=== PATIENT | male | born 1970 | race Caucasian/White ===

== ENCOUNTER 2023-07-13 08:08 | Emergency (ER) | payer OTHER, SELFPAY ==
[2023-07-13 08:19] VITALS: BP 133/78
[2023-07-13 08:41] VITALS: BMI 29.0
[2023-07-13 08:51] LABS: Urine Albumin 1+ (Neg - Trace); Urine Bilirubin 1+ (Negative); Urine Character Very Cloudy (Clear); Urine Color Brown; Urine Glucose Negative (Negative); Urine Ketone Negative (Negative); Urine Leukocyte Trace (Negative); Urine Nitrite Positive (Negative); Urine Occult Blood 4+ (Negative); Urine Specific Gravity 1.025 (<1.030); Urine Urobilinogen 1+ (Neg - 1+)
[2023-07-13 08:56] LABS: % Basophils 0.6 % (0-2); % Eosinophils 1.4 % (0-6); % Immature Granulocytes 0.4 % (0-0.5); % Lymphocytes 28.5 % (20.5-51.1); % Monocytes 6.7 % (1.7-9.3); % Neutrophils 62.4 % (42.2-75.2); Absolute Eosinophils 0.1 10^3/uL (0-0.7); Absolute Lymphocytes 2.1 10^3/uL (1.2-3.4); Absolute Monocytes 0.5 10^3/uL (0.1-0.6); Absolute Neutrophils 4.5 10^3/uL (1.4-6.5); Hemoglobin 14.8 g/dL (13.0-18.0); Mean Corp Hgb Conc. 35.2 g/dL (33.0-37.0); Mean Corpuscular Hgb 30.6 pg (27.0-31.0); Nucleated Red Blood Cells % 0 % (-); Platelet Count 183 10^3/uL (130-400); Red Blood Cell Count 4.83 10^6/uL (4.70-6.10); Red Cell Dist. Width 12.1 % (11.5-14.5); White Blood Cell Count 7.3 10^3/uL (4.8-10.8)
--- NOTE | 2023-07-13 09:01 | ED.GENMED ---
History of Present Illness
General
Chief Complaint: Urinary Symptoms
Source: patient and spouse
Exam Limitations: none
Time Seen by Provider: 07/13/23 08:25
Nursing documentation reviewed up to this point in time: agreed with
Travel History
Have you had any contact with someone who has COVID-19?: No
Do you have any symptoms of coronavirus? Fever > 100 degrees, chills, cough, shortness of breath, sore throat, loss of taste or smell, muscle aches, or headache?: No
History of Present Illness
History of Present Illness:
53-year-old male with past medical history of CAD status post stent, hyperlipidemia, ex-smoker who presents to the emergency department for evaluation of hematuria and flank/groin pain. Patient reports that for the past 2 weeks or so he has had
some pain in the left groin and left low back/flank. He says that he goes to the gym regularly and his pain seems to be worse with movement or prolonged standing and so he initially attributed to a muscular pain. He says that he took a rest from
the gym but noticed that this pain was not necessarily improving. He does state that he will occasionally get pain even when he is sitting resting. Today when he woke up in the morning and noticed that in addition to the pain he was having some
dark blood-tinged urine which is a new issue. Decided to come to the emergency room for assessment. He denies any fevers or chills. He denies any dysuria or change in frequency. He denies any testicular pain or swelling. He denies any abdominal
pain. No nausea or vomiting. No change in his bowel movements. He denies similar symptoms in the past.
Past History
Past History
ED Past Medical History: CAD and Other (Pancreatitis, migraines )
ED Past Surgical History: Cardiac (Stent of the LAD) and Cholecystectomy
Social History
Tobacco: Smoker
Alcohol: None
Family History
Family History: Other (His mother had a cholecystectomy )
Review of Systems
Review of Systems
All Other Systems: ROS reviewed and negative except as documented in HPI and ROS
Constitutional: Denies fever or chills
EENT: Denies sore throat or runny nose
Respiratory: Denies cough or trouble breathing
Cardiac: Denies chest pain or palpitations
ABD/GI: Denies abdominal pain, nausea or vomiting
: Reports flank pain, bleeding and dark urine; Denies dysuria or frequency
Musculoskeletal: Reports muscle pain (Left groin pain) and back pain; Denies neck pain
Neurological: Denies headache, weakness or numbness
Phy Exam
Physical Exam
Physical Exam:
General: Awake, alert, oriented x3; no acute distress
Head: Normocephalic, atraumatic
Eyes: Conjunctiva normal, sclera anicteric
Throat: Airway intact, handling secretions
Neck: Trachea midline, supple without meningismus
Lungs: Clear to auscultation bilaterally, no wheezing, rales, rhonchi
Heart: Regular rate and rhythm, no murmurs, gallops, or rubs
Abd: Soft, non distended, nontender to deep palpation
: No scrotal swelling, normal testicular lie; some mild tenderness in the inguinal crease but no mass or swelling or signs of hernia, normal left femoral pulse
Back: No CVA tenderness and no reproducible tenderness in the thoracic or lumbar spine or in the paraspinal muscles of the lumbar region
Neuro: Cranial nerves grossly intact, speech fluid
Skin: no rash
Extremities: Warm and well-perfused
Scores
Heart Failure Risk
Heart Failure Risk Score: Not Applicable
Heart Score for Chest Pain Patients
STEMI patient?: Not applicable
Withdrawal Assessment of Alcohol
Withdrawal Assessment Completed?: Not applicable
Course
Orders/Labs/Results
Orders:
Orders
07/13/23 08:27
CT Abd/pel Without Iv Or Oral Urgent
Comment:
Reason For Exam: left flank pain, hematuria
07/13/23 08:44
Complete Blood Count/With Diff Urgent
Comprehensive Metabolic Panel Urgent
Creatine Phosphokinase Urgent
Comment: ADD ON
Urinalysis Reflex To Culture Urgent
Date Specimen was Collected: 07/13/23
Time Specimen was Collected: :
Urine Microscopic Reflex Cult Urgent
Urine Culture Urgent
PRAKASH Source: U
Specimen Description:
Date Specimen was Collected: 07/13/23
Time Specimen was Collected: :
07/13/23 09:01
Add On- LAB Urgent
Tests Added?: CPK
Abnormal Lab Results
07/13/23
08:44
Glucose 113 H mg/dl
(70-99)
Ur Occult Blood Reflex 4+ A
(Negative)
Urine Nitrite (Reflex) Positive A
(Negative)
Urine Bilirubin 1+ A
(Negative)
Leukocyte Esterase Rfl Trace A
(Negative)
Urine RBC >100 A /HPF
(0-2)
Urine Bacteria (Reflex) Many A
(Negative)
Urine Albumin (Reflex) 1+ A
(Neg - Trace)
07/13/23 08:44
07/13/23 08:44
Vital Signs
Initial and Last Documented VS:
Initial Vital Signs
Temp Pulse Resp BP Pulse Ox
36.7 C 67 16 133/78 100
07/13/23 08:19 07/13/23 08:19 07/13/23 08:19 07/13/23 08:19 07/13/23 08:19
Last Documented Vital Signs
Temp Pulse Resp BP Pulse Ox
36.7 C 78 16 127/85 100
07/13/23 08:19 07/13/23 10:00 07/13/23 10:00 07/13/23 10:00 07/13/23 08:19
MDM/Problems Addressed
Differential Diagnosis Includes:
Muscle strain/rhabdomyolysis, nephrolithiasis, pyelonephritis, renal mass
MDM/Problems Addressed:
53-year-old male presents for evaluation of left flank/groin pain for the past 2 weeks now with some dark hematuria. Vital signs all within normal limits. Physical exam as above. Plan to place an IV check labs including CBC and CMP, CPK. Will
check urinalysis. Will send for CT of the abdomen pelvis. Monitor closely reassess after the above.
Labs reviewed: CBC unremarkable, CMP shows no clinically significant abnormalities. Urinalysis positive for nitrites with significant blood, many bacteria but no pyuria. Will plan to treat with antibiotics with concern for possible UTI. CT of the
abdomen pelvis shows no nephrolithiasis, no other acute pathology although he does have a finding concerning for possible small bladder neoplasm. Fortunately his urine here is dark but no significant clots and he is voiding without any postvoid
residual. Discussed with urology who indicated that they can see patient in the office next week. Recommend increasing fluid intake. Do not suspect that his groin/back pain is necessarily related to hematuria at this point�it is rather clearly
worse with movement and he does admit that it feels like a muscular pain suspect that that is more likely musculoskeletal pain and unrelated to hematuria but will cover with antibiotics for possible infection as above. I had a long discussion with
the patient to go over results and plan as above he feels comfortable with this. Spoke about return precautions and all questions were answered.
*Radiology
Radiology exam reviewed: radiology read reviewed
*Pulse Oximetry
Patient hypoxic: no
*Critical Care Note
Total Time (30-74mins, 75-104mins- exclusive of procedures): Not Applicable
Data Reviewed
Source: patient and spouse
Patient Management
Discussion with other providers: Tennis Ball Cover Cementer (Discussed with urology) and Radiologist (Discussed with radiologist)
ED Attending Note
-
Portions of this chart may have been created with voice recognition software.� Occasional wrong word or��sound alike� substitutions may have occurred due to the inherent limitations of voice recognition software.
Discharge Plan
Departure
Patient Disposition: Home (Routine Discharge)
Date of Disposition: 07/13/23
Time of Disposition: 10:41
Patient with high blood pressure during this ER visit?: No
Discharge Problem:
Acute UTI, Hematuria, Bladder mass, Groin strain
Instructions: Urinary Tract Infection, Adult (DC), Blood in the Urine (Hematuria), Adult (DC), Groin Strain ED
Prescriptions:
New
sulfamethoxazole-trimethoprim [Bactrim DS] 800-160 mg tablet
1 tab PO BID Qty: 14 0RF
No Action
mbtupbpema-jynkleimrasfd-szdv 1 TAB tablet
1 tab PO Q6HPRN PRN (Reason: migraines)
Patient Comments:
not to exceed 6 tablets in 24hours
aspirin 81 MG tablet,chewable
81 mg PO DAILY 0RF
nitroglycerin 0.4 MG tablet, sublingual
0.4 mg sublingual [id number] PRN (Reason: chest pain) Qty: 25 2RF
rosuvastatin 40 mg Tablet
40 mg PO QPM
acetaminophen [acetaminophen] 325 mg tablet
650 mg PO Q4HPRN PRN (Reason: mild pain) Qty: 1 0RF
ibuprofen 200 mg tablet
400 - 600 mg PO Q6HPRN PRN (Reason: moderate pain) Qty: 1 0RF
Vitamin D3
1 tab PO DAILY
Referrals:
Jd Gill MD [Active] - Call in 1-3 days for appt (Urology--call today to schedule the first available appointment)
Zoe Fowler MD [Family Provider] - Call in 1-3 days for appt
Activity Restrictions/Additional Instructions:
Thank you for visiting the Emergency Department at [facility].
1. Please schedule a follow up appointment as directed. Call first thing tomorrow morning to make an appointment.
2. If indicated, please take your medications as instructed and indicated on discharge paperwork.
3. If any of your symptoms do not improve, or persist, or become more severe within 6-12 hours, please return to the emergency department for further care.
4. Please return to the emergency department if you develop a headache, neck pain/stiffness, fever greater than 100.4F, chest pain, shortness of breath, persistent nausea, vomiting, slurred speech, difficulty walking, numbness/tingling, weakness,
signs of infection or any other symptoms that are worrisome to you.
Please call [phone] if you have any questions.
Interventions
Interventions:
*Risk Screen - Suicide Last Done: 07/13/23 08:29
*General Assessment Last Done: 07/13/23 08:48
*Neglect/Abuse Screening Last Done: 07/13/23 08:29
ED- Fall Risk Assessment Last Done: 07/13/23 08:42
*ED COVID-19 Vaccine History Last Done: 07/13/23 08:19
ED-Male Genitourinary Assessment Last Done: 07/13/23 08:46
[2023-07-13 09:16] LABS: Urine Red Blood Cell >100 /HPF (0-2)
[2023-07-13 09:17] LABS: Urine Bacteria Many (Negative); Urine White Cell 0-2 /HPF (0-5)
[2023-07-13 09:25] LABS: ALT (SGPT) 20 U/L (0-50); AST (SGOT) 26 U/L (17-59); Albumin 4.5 g/dl (3.5-5.0); Alkaline Phosphatase 59 U/L (38-126); Blood Urea Nitrogen 11 mg/dl (9-20); Calcium 9.3 mg/dl (8.4-10.2); Carbon Dioxide 26 mmol/L (22-30); Estimated Creatinine Clearance 90 ml/min; Glucose 113 mg/dl (70-99); Potassium 3.9 mmol/L (3.5-5.1); Sodium 138 mmol/L (135-145); Total Bilirubin 0.9 mg/dl (0.2-1.3); eGFR > 60.00
[2023-07-13 09:32] LABS: Chloride 104 mmol/L (98-107)
[2023-07-13 10:00] VITALS: BP 127/85
[2023-07-13 10:50] LABS: Creatine Phosphokinase 95 U/L (55-170)
[2023-07-13] MEDS: BACTRIM DS 800 MG/160 MG 1 TABLET PO (11:08)
[2023-07-13 11:16] VITALS: BP 120/87
== END 2023-07-13 11:17 | disposition home or self-care (01) ==
LOC: EMR 08:08
PROVIDERS: EMERGENCY PHYSICIAN Emergency Medicine; FAMILY PHYSICIAN Internal Medicine
DX: N39.0 Urinary tract infection, site not specified (principal); N32.9 Bladder disorder, unspecified; S39.011A Strain of muscle, fascia and tendon of abdomen, initial encounter; X58.XXXA Exposure to other specified factors, initial encounter; R31.9 Hematuria, unspecified; I25.10 Atherosclerotic heart disease of native coronary artery without angina pectoris; E78.5 Hyperlipidemia, unspecified; F17.200 Nicotine dependence, unspecified, uncomplicated
CPT/HCPCS: 99284; 74176; 80053; 81003; 81015; 82550; 85025; 87086

== ENCOUNTER 2025-04-08 07:57 | Emergency (ER) | payer OTHER, SELFPAY ==
[2025-04-08] VITALS (8 sets, daily range): BP systolic 123–153; BP diastolic 72–86; BMI 27.6
--- NOTE | 2025-04-08 08:20 | EDRN ---
Tia Conner PA in room w/pt.
--- NOTE | 2025-04-08 08:27 | ED.GENMED ---
History of Present Illness
<Jacky Conner PA-C - Last Filed: 04/08/25 16:46>
General
Chief Complaint: Chest Pain
Source: patient
Time Seen by Provider: 04/08/25 08:15
History of Present Illness
History of Present Illness:
55-year-old male with past medical history of CAD status post previous GA with LAD stent in 2016, hyperlipidemia, previous pancreatitis, GERD presenting to the ER for evaluation after he started noticing a waxing and waning discomfort around the
left anterior chest described to be a burning sensation with intermittent crampiness that lasts approximately 10 seconds and then resolves spontaneously occurring multiple times throughout the day but without any exacerbating or alleviating factors
noting that the pain is so fleeting he did not take anything for the symptoms. Patient notes no other associated symptoms. He denies any fevers or recent illnesses. Denies any recent travel or known sick contacts. Also denies any cough,
shortness of breath, diaphoresis, exertional dyspnea, orthopnea, lower extremity edema, abdominal pain, nausea or vomiting. Social history was noted for vaping and occasional alcohol use but nothing out of the ordinary over the last few days. He
reports good compliance with his aspirin regimen. He notes that he works out 3 to 4 days/week and has not had any symptoms while exercising. He follows with senior principal process engineer, Dr. Torres, and had seen him on an outpatient basis for an annual visit
not too long ago and reports 'everything was okay'.
Past History
<Jacky Conner PA-C - Last Filed: 04/08/25 16:46>
Past History
ED Past Medical History: CAD, HTN, Hypercholesterolemia, GA and Other (Pancreatitis, migraines )
ED Past Surgical History: Cardiac (Stent of the LAD) and Cholecystectomy
Social History
Tobacco: Vaping
Alcohol: Occasional
Drug: None
Personal:
Living: with family
Family History
Family History: Other (His mother had a cholecystectomy )
Review of Systems
<Jacky Conner PA-C - Last Filed: 04/08/25 16:46>
Review of Systems
All Other Systems: ROS reviewed and negative except as documented in HPI and ROS
Phy Exam
<Jacky Conner PA-C - Last Filed: 04/08/25 16:46>
Physical Exam
Physical Exam:
GENERAL: Alert , in no apparent distress
EYE: clear conjunctiva b/l
HEAD: NCAT
ENT: o/p clr, mmm.
CARDIAC: Regular rate and rhythm .
LUNGS: Clear breath sounds bilaterally, no acute respiratory distress, no wheezes/rales/rhonchi
ABDOMEN: Soft, without focal tenderness, no r/g, no cvat
NEUROLOGICAL: Alert and oriented
SKIN: Warm and dry, skin intact.
MUSCULOSKELETAL: No edema, well perfused.
PSYCH: Normal and appropriate interaction.
Scores
<Jacky Conner PA-C - Last Filed: 04/08/25 16:46>
Heart Failure Risk
Heart Failure Risk Score: Not Applicable
Heart Score for Chest Pain Patients
STEMI patient?: No
History: Slightly or Non-Suspicious
ECG: Normal
Age: >45 - <65 years
Risk Factors: >/= 3 Risk Factors or History of CAD
Troponin: </= Normal Limit
Heart Score for Chest Pain Patients: 3
Heart Score Risk: 2.5% MACE over next 6 weeks
Withdrawal Assessment of Alcohol
Withdrawal Assessment Completed?: Not applicable
<Nikita Lemos MD - Last Filed: 04/08/25 10:21>
Heart Score for Chest Pain Patients
Heart Score for Chest Pain Patients: 3
Heart Score Risk: 2.5% MACE over next 6 weeks
Course
<Jacky Conner PA-C - Last Filed: 04/08/25 16:46>
Orders/Labs/Results
Orders:
Orders
04/08/25 Breakfast
NPO
Allow oral meds: Yes
Allow clear liquids: No
NPO with Ice Chips: No
04/08/25 07:59
EKG [Electrocardiogram (*1)] Urgent
Reason for Study: Chest Pain
04/08/25 08:00
EKG- Treatment ONCE
04/08/25 08:16
Cardiac Monitoring- Treatment ONCE
IV Insert/Care/Rem.- Treatment PRN
04/08/25 08:27
CR Chest - 2 Views Urgent
Comment:
Reason For Exam: chest pain
04/08/25 08:29
Complete Blood Count/With Diff Urgent
Comprehensive Metabolic Panel Urgent
Troponin I Urgent
04/08/25 11:28
Troponin I Routine
04/08/25 11:30
EKG [Electrocardiogram (*1)] Routine
Reason for Study: Chest Pain
Comment: To be done with troponin
04/08/25 12:42
Stress Echo Cardiography (*10) Routine
Reason for Study: Chest pain
Abnormal Lab Results
04/08/25
08:29
RBC 4.56 L 10^6/uL
(4.70-6.10)
Glucose 131 H mg/dl
(70-99)
04/08/25 08:29
04/08/25 08:29
Vital Signs
Initial and Last Documented VS:
Initial Vital Signs
Temp Pulse Resp BP Pulse Ox
98.2 F 61 16 153/86 98
04/08/25 08:00 04/08/25 08:00 04/08/25 08:00 04/08/25 08:00 04/08/25 08:00
Last Documented Vital Signs
Temp Pulse Resp BP Pulse Ox
98.2 F 57 17 125/76 98
04/08/25 08:00 04/08/25 15:00 04/08/25 16:41 04/08/25 16:41 04/08/25 15:00
<Nikita Lemos MD - Last Filed: 04/08/25 10:21>
Orders/Labs/Results
Orders:
Orders
04/08/25 Breakfast
NPO
Allow oral meds: Yes
Allow clear liquids: No
NPO with Ice Chips: No
04/08/25 07:59
EKG [Electrocardiogram (*1)] Urgent
Reason for Study: Chest Pain
04/08/25 08:00
EKG- Treatment ONCE
04/08/25 08:16
Cardiac Monitoring- Treatment ONCE
IV Insert/Care/Rem.- Treatment PRN
04/08/25 08:27
CR Chest - 2 Views Urgent
Comment:
Reason For Exam: chest pain
04/08/25 08:29
Complete Blood Count/With Diff Urgent
Comprehensive Metabolic Panel Urgent
Troponin I Urgent
04/08/25 11:28
Troponin I Routine
04/08/25 11:30
EKG [Electrocardiogram (*1)] Routine
Reason for Study: Chest Pain
Comment: To be done with troponin
04/08/25 12:42
Stress Echo Cardiography (*10) Routine
Reason for Study: Chest pain
Abnormal Lab Results
04/08/25
08:29
RBC 4.56 L 10^6/uL
(4.70-6.10)
Glucose 131 H mg/dl
(70-99)
04/08/25 08:29
04/08/25 08:29
Vital Signs
Initial and Last Documented VS:
Initial Vital Signs
Temp Pulse Resp BP Pulse Ox
98.2 F 61 16 153/86 98
04/08/25 08:00 04/08/25 08:00 04/08/25 08:00 04/08/25 08:00 04/08/25 08:00
Last Documented Vital Signs
Temp Pulse Resp BP Pulse Ox
98.2 F 57 17 125/76 98
04/08/25 08:00 04/08/25 15:00 04/08/25 16:41 04/08/25 16:41 04/08/25 15:00
<Jacky Conner PA-C - Last Filed: 04/08/25 16:46>
MDM/Problems Addressed
Differential Diagnosis Includes:
ACS
Arrhythmia
Valvular disease
PE
Pericarditis/Myocarditis
Dissection
GERD/Gastritis
PUD
Muscular etiology
MDM/Problems Addressed:
55-year-old male presents to the ER for waxing and waning chest discomfort lasting approximately 10 seconds and then resolving spontaneously, asymptomatic at time of my exam. EKG done in triage shows a sinus bradycardia without any ischemic changes
or ectopy. Patient overall well-appearing. He does have known CAD with status post LAD stent. He does report working out multiple times per week and never symptomatic during exercise. Overall my suspicion for ACS is quite low but given cardiac
history will perform 3-hour troponin. Will keep on conveyor monitor. Disposition pending
Chronic conditions affecting care: CAD
<Jacky Conner PA-C - Last Filed: 04/08/25 16:46>
*Radiology
Radiology exam reviewed: preliminary read by ED provider (normal CXR)
*Pulse Oximetry
SaO2: 98
Oxygen Mode of Delivery: Room air
Patient hypoxic: no
*EKG
Heart Rate: 58
Rate: bradycardiac
Rhythm: sinus
Latty: normal axis
Ischemia: no ischemia
*Roping Machine Tender Interpretation
Heart Rate: 67
Rhythm: sinus
*Critical Care Note
Total Time (30-74mins, 75-104mins- exclusive of procedures): Not Applicable
<Jacky Conner PA-C - Last Filed: 04/08/25 16:46>
Patient Management
Discussion with other providers: Scientific Glass Blower
Escalation/DeEscalation of care consider admission/obs:
Patient's repeat troponin negative. Given his cardiac history we did discuss the case with on-call senior principal process engineer, Dr. Farrell, who came to the emergency department to evaluate the patient with plans to perform stress echo today at 3:15PM, as long
as this is unremarkable patient can be safely dispositioned home, if abnormal we will discuss with cardiology about further testing/treatment planning.
Patient patient had stress echo done with the following results
SUMMARY
1. Normal Stress Echocardiogram with normal hemodynamic response to excercise.
2. Good exercise capacity for age.
3. Overall low risk stress test.
4. Compared to the prior on 04/20/2016, the findings are similar.
Per cardiology patient will be safely discharged home. Patient advised on return precautions but otherwise stable for discharge.
ED Attending Note
<Jacky Conner PA-C - Last Filed: 04/08/25 16:46>
-
Portions of this chart may have been created with voice recognition software.� Occasional wrong word or��sound alike� substitutions may have occurred due to the inherent limitations of voice recognition software.
<Nikita Lemos MD - Last Filed: 04/08/25 10:21>
ED Attending Note
Patient seen and examined by attending physician: Yes
ED Attending Note:
Patient with history of CAD, status post 1 cardiac stent placement in 2016, presents to ED secondary to intermittent chest pain since yesterday afternoon. Chest pain described as crampy, burning, nonradiating, without any alleviating or
exacerbating symptoms. Chest pain has lasted seconds to minutes, with spontaneously solution. Denies recent illness. Denies recent trauma. No recent change in medications or diet. Denies back pain. Denies leg pain or swelling. No recent
travel or surgery. Patient states that his chest pain is different from what he experienced in 2016. However, since 2016, patient has not experienced any chest pain until yesterday. In addition, patient reports seeing his primary senior principal process engineer,
Dr. Torres, 2 weeks ago for routine visit.
Physical Exam
General: no apparent distress, not acutely ill. afebrile
Head: nc/at. eomi
Neck: supple. no meningeal signs.
Heart: s1/s2 regular rate and rhythm, no murmur
Lungs: no acute respiratory distress. clear bilaterally
Abdomen: normal bowel sounds. not tender.
Neuro: alert and oriented x 3. no focal neurological deficits
Skin: no rash
Psychiatric: well kept. interactive and cooperative
Extremities: no edema. no calf tenderness.
Patient with an unremarkable workup in ED, including EKG and troponin. However, patient is still experiencing intermittent chest pain during evaluation ED. Cardiac catheterization report from 2016 reviewed, significant for 1 cardiac stent
placement along with multiple vessels with minimal to moderate disease. In light of ongoing symptoms, with new chest pain, will consult cardiology for an evaluation in ED.
Discharge Plan
Departure
Patient Disposition: Home (Routine Discharge)
Date of Disposition: 04/08/25
Time of Disposition: 16:39
Patient with high blood pressure during this ER visit?: Yes
Discharge Problem:
Chest pain
Instructions: Chest pain (DC)
Prescriptions:
No Action
rosuvastatin 40 mg Tablet
40 mg PO QPM
acetaminophen [acetaminophen] 325 mg tablet
650 mg PO Q4HPRN PRN (Reason: mild pain) Qty: 1 0RF
cholecalciferol (vitamin D3) [Vitamin D3] 25 mcg (1,000 unit) Tablet
25 mcg PO DAILY
famotidine [Pepcid] 20 mg Tablet
20 mg PO DAILYPRN PRN (Reason: gerd)
lsjbkypfvv-btzthwipcsbtc-hfya [Fioricet] 50-300-40 mg Capsule
1 cap PO Q6HPRN PRN (Reason: headaches)
aspirin 81 MG tablet,chewable
81 mg PO DAILY
Referrals:
Zoe Fowler MD [Family Provider, Internal Medicine]
Interventions
Interventions:
*Risk Screen - Suicide Last Done: 04/08/25 08:00
*General Assessment Last Done: 04/08/25 08:18
*Neglect/Abuse Screening Last Done: 04/08/25 08:00
*ED- Fall Risk Assessment Last Done: 04/08/25 08:18
*ED COVID-19 Vaccine History Last Done: 04/08/25 08:18
*ED Influenza Vaccine History Last Done: 04/08/25 08:18
*Nursing Disposition Last Done: 04/08/25 16:45
ED- Cardiac Assessment Last Done: 04/08/25 08:34
Discharge Date and Time
Print Language: ICELANDIC
[2025-04-08 08:42] LABS: Hematocrit 40.4 % (39.0-52.0); Hemoglobin 13.7 g/dL (13.0-18.0); Mean Corp Hgb Conc. 33.9 g/dL (33.0-37.0); Mean Corpuscular Volume 88.6 fL (80.0-94.0); Nucleated Red Blood Cells % 0 % (-); Platelet Count 158 10^3/uL (130-400); Red Cell Dist. Width 12.6 % (11.5-14.5)
[2025-04-08 08:56] LABS: ALT (SGPT) 19 U/L (0-50); AST (SGOT) 21 U/L (17-59); Albumin 4.3 g/dl (3.5-5.0); Alkaline Phosphatase 52 U/L (38-126); Blood Urea Nitrogen 13 mg/dl (9-20); Calcium 9.1 mg/dl (8.4-10.2); Carbon Dioxide 29 mmol/L (22-30); Chloride 106 mmol/L (98-107); Estimated Creatinine Clearance 88 ml/min; Glucose 131 mg/dl (70-99); Potassium 4.1 mmol/L (3.5-5.1); Sodium 140 mmol/L (135-145); Total Protein 6.6 g/dl (6.3-8.2); eGFR > 60.00
[2025-04-08 09:07] LABS: Troponin I < 0.012 ng/ml
--- NOTE | 2025-04-08 09:35 | EDRN ---
Tia Conner PA in to speak w/ pt.
--- NOTE | 2025-04-08 11:30 | CON.CAR ---
Addendum entered and electronically signed by Keily Farrell MD 04/08/25 15:23:
I saw and evaluated the patient, and I provided the substantive portion of the medical decision making.
I reviewed and agree with the note by Darcy MAKI and it accurately reflects our care.
I personally performed the medical decision making of the this encounter and my assessment and plan is below:
55-year-old gentleman with past medical history of CAD with a history of PCI in 2016, bladder cancer in remission, hyperlipidemia presenting for evaluation of chest pain. He has had intermittent chest pain
That is random, lasting for seconds. At times in the left side, at times mid substernal, other times anterior. It can be crampy. Other times it feels like a burning hot needle. It does not seem to be exertional. It does remind him of the
feeling he had when he had his ME however at that time he also had pain radiating to the jaw. He is quite active stating he is in the best shape of his life.
On exam he is a regular rate and rhythm with a normal S1-S2 no murmur rubs gallops were appreciated lungs were clear to auscultation bilaterally. Extremities were warm and perfused.
EKG shows sinus bradycardia.
Troponin was negative x 2.
Assessment:
Chest pain: Atypical and typical features. Given his history of prior ME with similar symptoms, will arrange for stress echocardiogram prior to discharge. If normal, would recommend further evaluation with primary care for noncardiac sources.
CAD: Prior PCI in 2016. Continue aspirin and high-dose statin.
Plan of care discussed with Dr. Lemos and Carlos Manuel Fuentes in the emergency department. Hopeful we will he we can discharge him after a normal stress test.
Original Note:
Consultation
Consultation Request
Date/Time Consultation Requested: 04/08/2025 09:30
Date/Time Consultation Performed: 04/08/2025 10:15
Requesting Provider: Jacky Ng PA-C
Performing Provider: GLYNN Rodriguez for Dr. Farrell
Reason for Consultation: Chest pain
Medical History
-
Chief Complaint: Chest pain
History of Present Illness:
Joshua Barros is a 55-year-old male with coronary artery disease (NSTEMI with LAD PCI 2015), bladder cancer in remission, and dyslipidemia who presented to the emergency department with a chief complaint of chest pain. Yesterday, he noted
waxing and waning chest discomfort. It is midsternal and anterior. He describes it as a crampy discomfort along with a burning hot needle. It spontaneously occurs and usually resolves within 20 seconds. Nothing makes it better or worse.
Changing position does not aggravate the discomfort. It does not radiate. No associated symptoms of shortness of breath, dizziness, diaphoresis, nor palpitations. At the time of this consultation he was chest pain free
When he had his PCI in 2015 he also had intermittent chest discomfort but at that time it radiated into his jaw and neck.
Past Medical History
Past Medical History: CAD, Cancer (Bladder) and Hypercholesterolemia
Social History
Tobacco: Vaping
Personal:
Living: With Family
Employment: Employed
Family History
Family History: Reviewed & Not Pertinent
Allergies / Home Medications
Allergy/AdvReac Type Severity Reaction Status Date / Time
amoxicillin (From Augmentin) Allergy GI Upset Verified 07/13/23 08:23
clavulanic acid (From Allergy GI Upset Verified 07/13/23 08:23
Augmentin)
Penicillins Allergy Rash Verified 07/13/23 08:23
triamcinolone (From Nasacort) Allergy Nose bleed Verified 07/13/23 08:23
�Medication �Instructions �Recorded �Confirmed �Type
btclggdcet-cealppqvboqdm-kxiskped 1 tab PO Q6HPRN PRN migraines 10/26/15 07/13/23 History
50 mg-325 mg-40 mg tablet
aspirin 81 mg chewable tablet 81 mg PO DAILY 10/28/15 07/13/23 Rx
nitroglycerin 0.4 mg sublingual 0.4 mg sublingual [id number] PRN 10/28/15 07/13/23 Rx
tablet chest pain #25 tabs
rosuvastatin 40 mg tablet 40 mg PO QPM 12/02/21 07/13/23 History
acetaminophen 325 mg tablet 650 mg (2 x 325 mg) PO Q4HPRN PRN 12/07/21 07/13/23 Rx
mild pain #1 tab
ibuprofen 200 mg tablet 400 - 600 mg (2 - 3 x 200 mg) PO 12/07/21 07/13/23 Rx
Q6HPRN PRN moderate pain #1 tab
Vitamin D3 1 tab PO DAILY 07/13/23 07/13/23 History
sulfamethoxazole 800 1 tab PO BID #14 tabs 07/13/23 Rx
mg-trimethoprim 160 mg tablet
(Bactrim DS)
Review of Systems
-
History Source: Patient
All other systems: Negative unless noted
Constitutional: No Symptoms
EENT: No Symptoms
Respiratory: No Symptoms
Cardiac: No Symptoms
Abdomen/GI: No Symptoms
: No Symptoms
Musculoskeletal: No Symptoms
Skin: No Symptoms
Neurological: No Symptoms
Endocrine: No Symptoms
Hematologic/Lymphatic: No Symptoms
Physical Exam
Vital Signs
Temp Pulse Resp BP Pulse Ox
98.2 F 51 16 128/75 97
04/08/25 08:00 04/08/25 11:15 04/08/25 11:15 04/08/25 11:00 04/08/25 11:15
Lab Results
04/08/25 08:29
04/08/25 08:29
Troponin I < 0.012 ng/ml 04/08/25 11:28
Physical Exam
General: Well Developed, Well Nourished, No Apparent Distress and Comfortable
HEENT: Normocephalic, Anicteric and Moist Mucous Membranes
Respiratory: Clear and Non Labored Respirations
Cardiac: S1/S2 and Regular Rhythm; Negative Peripheral Edema
Breast: Deferred by me
GI: Soft, Non Tender, Non Distended and Normal Bowel Sounds
Rectal: Deferred by Provider
Genito-urinary: No Costovertebral Tender
Musculoskeletal: No Clubbing and No Cyanosis
Skin: Warm and Dry
Neuro: AO x 3
Hematologic/Lymphatic: No Lymphadenopathy
Psych: Calm
Impression / Plan
-
I/P: 55M with coronary artery disease (NSTEMI with LAD PCI 2015), bladder cancer in remission, and dyslipidemia who presented to the emergency department with a chief complaint of chest pain.
Primary collet gluer: Dr. Torres
Chest pain
-Currently chest pain-free
-Initial troponin <0.012, trend
-EKG without acute ischemia
Coronary artery disease
-PCI to LAD 2015
-Continue ASA and statin
Dyslipidemia
-Most recent LDL above 70, goal LDL <55
-Consider Zetia, he declined at his most recent office visit
Bladder cancer, status post excision of urothelial carcinoma (Dr. Maura Fiore at [facility], 09/2024)
Former cigarette smoker, currently vaping, cessation recommended
Data Reviewed
-
EKG: Report Reviewed by me
Medical Tests (Nuc Med, Echo etc): Report Reviewed by me
Labs: Labs Reviewed by me
Old Records: Reviewed
[2025-04-08 12:01] LABS: Troponin I < 0.012 ng/ml
== END 2025-04-08 16:46 | disposition home or self-care (01) ==
LOC: EMR 07:57
PROVIDERS: Nurse Practitioner Gerontology; EMERGENCY PHYSICIAN Emergency Medicine; FAMILY PHYSICIAN Internal Medicine; OTHER PHYSICIAN Physician Assistant Medical
DX: R07.89 Other chest pain (principal); I25.10 Atherosclerotic heart disease of native coronary artery without angina pectoris; I10 Essential (primary) hypertension; E78.00 Pure hypercholesterolemia, unspecified; I25.2 Old myocardial infarction; F17.290 Nicotine dependence, other tobacco product, uncomplicated; Z85.51 Personal history of malignant neoplasm of bladder; Z95.5 Presence of coronary angioplasty implant and graft; Z90.49 Acquired absence of other specified parts of digestive tract
CPT/HCPCS: 99285; 71046; 80053; 84484; 85025; 93005; 93017; 93350